=== PATIENT | female | born 1955 | race Caucasian/White ===

== ENCOUNTER 2016-12-18 10:58 | Day surgery (SDC) | payer OTHER ==
[~2016-12-18] VITALS: Ht 162.6 cm; Wt 104.6 kg
[2016-12-18] MEDS ORDERED: LISINOPRIL (13:27)
[2016-12-18] MEDS ORDERED: PAXIL (13:27)
[2016-12-18] MEDS ORDERED: ELIQUIS (13:27)
[2016-12-18] MEDS ORDERED: DOXEPIN (13:27)
[2016-12-18] MEDS ORDERED: ALBUTEROL (13:27)
[2016-12-18] MEDS ORDERED: ADVAIR (13:27)
[2016-12-18 13:31] VITALS: Ht 162.6 cm; Wt 104.6 kg
[2016-12-18] MEDS ORDERED: PROPOFOL 60 ML ONE (14:43)
[2016-12-18] MEDS ORDERED: LIDOCAINE 2% (SDV) 5 ML INJ ONE (14:43)
[2016-12-18 14:47] VITALS: BP 140/66; PULSE 80; RESP 20
[2016-12-18 15:52] VITALS: BP 159/70; PULSE 96; RESP 18
--- NOTE | 2016-12-18 18:30 | GILP ---
DATE OF PROCEDURE: 12/18/2016 NAME OF PROCEDURE: Colonoscopy. SURGEON: Anand Kolb MD PREOPERATIVE DIAGNOSIS: Positive occult blood in stool. POSTOPERATIVE DIAGNOSES: 1. Colonoscopy all the way to the cecum. 2. Extensive diverticulosis of the colon. 3. Internal hemorrhoids. 4. No colon neoplasm was identified. INDICATION FOR THE PROCEDURE: Ms. Grecia Young is a 61-year-old female patient who was noted to pruett ve positive occult blood in stool. The patient was scheduled for colonoscopy for further evaluation . The procedure and possible complications were well explained to the patient. The patient understood and consented to the procedure. DESCRIPTION OF PROCEDURE: Under the influence of anesthesia, the colonoscope was carefully introduc ed in the rectum and under direct vision, it was advanced all the way to the cecum. FINDINGS: The patient had extensive diverticulosis of the colon. She also had internal hemorrhoids . No colon neoplasm was identified. She tolerated the procedure very well and there was no complication from the procedure. At the end of the procedures, she was awake with stable vital signs and she was discharged home to the care of her family. IMPRESSION: 1. Colonoscopy all the way to the cecum. 2. Extensive diverticulosis of the colon. 3. Internal hemorrhoids. 4. No colon neoplasm was identified. Dictated By: ANAND YORK/VANESSA Conf#: [id number] DID#: [id number] CC: ANAND KOLB MD;*EndCC*
== END 2016-12-18 16:11 | disposition home or self-care (01) ==
LOC: GIL 10:58
PROVIDERS: ATTEND Internal Medicine Gastroenterology
DX: K92.1 Melena (principal); K57.90 Diverticulosis of intestine, part unspecified, without perforation or abscess without bleeding; K64.8 Other hemorrhoids; I25.10 Atherosclerotic heart disease of native coronary artery without angina pectoris; J44.9 Chronic obstructive pulmonary disease, unspecified; E66.01 Morbid (severe) obesity due to excess calories; Z68.39 Body mass index [BMI] 39.0-39.9, adult; Z86.718 Personal history of other venous thrombosis and embolism
CPT/HCPCS: 45378; Z7610